=== PATIENT | female | born 1960 | race Caucasian/White ===

== ENCOUNTER 2024-06-23 08:37 | Day surgery (SDC) | payer OTHER, SELFPAY ==
[2024-06-23 08:50] VITALS: BMI 21.7
[2024-06-23] MEDS: LACTATED RINGERS 1000 ML 1,000 ML 100 ML IV (09:01)
[2024-06-23] MEDS: SODIUM CHLORIDE 0.9 % (FLUSH) 10 ML SYRINGE IVF (09:01)
[2024-06-23 09:22] VITALS: BP 142/86; PULSE 76; RESP 16; TEMP 36.6; O2SAT 100
[2024-06-23] MEDS: CEFAZOLIN 1 GM inj IVP (10:38)
[2024-06-23] MEDS: BUPIVACAINE 0.25% 30 ML INJECTION (11:00)
[2024-06-23] MEDS: LIDOCAINE 1%-EPI 1:100,000 20 ML INFILTRATI (11:00)
--- NOTE | 2024-06-23 11:15 | W.ANESCHARGE ---
Anesthesia Charges Start Date/Time Anesthesia Start Date: 06/23/24 Anesthesia Start Time: 10:19 Stop Date/Time Anesthesia Stop Date: 06/23/24 Anesthesia Stop Time: 11:15 Coding CPT Codes CPT Codes: ANESTH HEAD/NECK/PTRUNK - 13813 ([id number]) P1 - NORMAL HEALTHY PATIENT, QK - GENERAL CAR SUPERVISOR YARD 2-4 CNCRNT ANES PROC, QX - ENDOCRINOLOGIST SVDee W/ MED DIRECTION
[2024-06-23 11:16] VITALS: BP 104/67; PULSE 58; RESP 16; TEMP 36.2; O2SAT 98
--- NOTE | 2024-06-23 11:18 | PM.GSPRC ---
Operative Note Date of procedure: 06/23/24 Pre-op diagnosis: 1. Right temporal headache concerning for temporal arteritis. Post-op diagnosis: Same Type of Procedure: 1. Right temporal artery biopsy. Indications: 64-year-old female was seen in clinic with several weeks of right temporal headache. The headache was dull and persistent appearing frequently. Patient denied vision changes or jaw pain. Upon her workup by her primary care doctor her sedimentation rate was found to be elevated at 63. Since there was a concern for temporal arteritis, patient was started on prednisone and referred for temporal artery biopsy. On clinical exam patient had no tenderness to palpation over bilateral temples. Her cheondoism artery was palpable bilaterally. The procedure was discussed in detail. The risks associated procedure including infection, bleeding, and the need for prolonged steroids were all discussed with the patient, and she agreed to proceed. Procedure Description: After discussing the risks and benefits of the procedure, the patient signed informed consent.? The operative site was marked and the patient was brought to the operating room and placed on the operating table in supine position.? Care was taken to pad the patient's pressure points.?? The patient was then sedated by anesthesia.?? The operative site was then prepped and draped in the usual sterile fashion.? A time-out was then performed. The right superficial temporal artery pulse was palpated and the course of the artery was marked with a marking pen. A mixture of 1% Lidocaine and 0.25% Marcaine with Epinephrine was injected at the site of the incision and a vertical skin incision was made with a scalpel. Subcutaneous tissues were dissected with tenotomy scissors. The use of cautery was minimized throughout the case. Superficial temporal fascia was opened and the course of the superficial temporal artery was visualized. Tissues around the artery were dissected off. There were small arterial branches and those were controlled with cautery and small clips. When over 2 cm of the temporal artery was exposed, its proximal and distal ends were tied with 3-0 vicryl ties and the exposed segment of the the right artery was excised. Vascular clips were placed on free and near the Vicryl ties. The specimen was passed off the field and sent to pathology. Surgical field was examined for bleeding and there was none. Subdermal layer was re-approximated with interrupted 3-0 vicryl stitches. Skin was closed with a running 4-0 monocryl stitch. Dermabond was applied over the incision. Patient tolerated the procedure well and was transferred to same day surgery in stable condition. Findings: Skinny right temporal artery. Anesthesia: MAC and local Surgeon: Shyanne Washington MD Estimated blood loss (mL): 2 Additional Specimen Information: 1. Right temporal artery. Condition: stable Disposition: same day
[2024-06-23 11:30] VITALS: BP 138/82; PULSE 68; RESP 16; O2SAT 100
[2024-06-23 11:45] VITALS: BP 134/80; PULSE 62; RESP 16; O2SAT 99
--- NOTE | 2024-06-23 11:54 | W.ANESCHARGE ---
Anesthesia Charges Start Date/Time Anesthesia Start Date: 06/23/24 Anesthesia Start Time: 10:19 Stop Date/Time Anesthesia Stop Date: 06/23/24 Anesthesia Stop Time: 11:15 Coding CPT Codes CPT Codes: ANESTH NECK VESSEL SURGERY - 39450 ([id number]) QK - INFORMATION SYSTEMS COORDINATOR 2-4 CNCRNT ANES PROC, QX - HUMAN RESOURCES VICE PRESIDENT SVC W/ MD MED DIRECTION, P1 - NORMAL HEALTHY PATIENT
== END 2024-06-23 12:21 | disposition home or self-care (01) ==
PROVIDERS: PCP Family Medicine; Visit Provider Surgery
PROC: (CPT 37609; principal; 2024-06-23 10:00)
DX: R51.9 Headache, unspecified (principal)
CPT/HCPCS: 37609; 00300; 00352; 88305; J0665; J0690; J1100; J2250; J2405; J2704; J3010; J7120